=== PATIENT | male | born 1950 | race Caucasian/White ===

== ENCOUNTER 2018-03-12 15:30 | Outpatient (RCR) | payer BC ==
[~2018-03-12 15:30] MED LIST: BENICAR40 MG PO; FLUTICASON0.05 MG/Ac NS; NORVASC 5MG5 MG/TAB PO; SIMVASTATIN40 MG PO; ZETIA 10MG TAB10 MG PO; [UNRECOGNIZED DRUG - OTHER] PO
== END 2018-03-20 15:12 | disposition home or self-care (01) ==
LOC: WSPT 15:30
DX: M17.12 Unilateral primary osteoarthritis, left knee (principal)
CPT/HCPCS: G0283-GP

== ENCOUNTER → 2019-04-10 | Outpatient (CLI) | payer BC | LOC: MC.RAD 04-08 13:00 | DX: Z12.31 Encounter for screening mammogram for malignant neoplasm of breast (principal); N62 Hypertrophy of breast ==

== ENCOUNTER → 2019-07-24 | Outpatient (CLI) | payer BC | LOC: COL.RAD 14:15 | DX: R22.1 Localized swelling, mass and lump, neck (principal) ==

== ENCOUNTER → 2019-08-21 | Outpatient (CLI) | payer BC | LOC: COL.RAD 11:28 | DX: D17.9 Benign lipomatous neoplasm, unspecified (principal); M46.92 Unspecified inflammatory spondylopathy, cervical region; J32.0 Chronic maxillary sinusitis | CPT/HCPCS: Q9967 ==

== ENCOUNTER 2019-10-26 23:15 | Emergency (ER) | payer BC ==
[~2019-10-26] VITALS: Ht 182.9 cm; Wt 93.2 kg
[~2019-10-26 23:15] MED LIST changes: +NORVASC 10MG10 MG PO; -NORVASC 5MG5 MG/TAB PO
[2019-10-26] MEDS ORDERED: HYGROTON 2525 MG/TAB PO (23:52)
[2019-10-26] MEDS ORDERED: FERROUSAL325 MG PO (23:52)
[2019-10-26] MEDS ORDERED: CRESTOR20 MG PO (23:53)
[2019-10-26] MEDS ORDERED: ZYRTEC10MGSGL PO (23:53)
[2019-10-27 00:26] LABS: BASO % 0.2 % (0.0-2.0); EOS # 0.1 (0.0-0.7); EOS % 0.5 % (0-4.0); GRAN % 79.4 % (42.2-75.2); HEMOGLOBIN 11.2 g/dl (13.5-18.0); LYMPH % 9.8 % (20.0-51.0); MEAN CELL VOLUME 87 fl (80.0-100.0); MEAN CORPUSCULAR HEMOGLOBIN 30 pg (27.0-31.0); MEAN CORPUSCULAR HGB CONC 34 g/dl (33.0-37.0); MEAN PLATELET VOLUME 9.5 fl (7.4-10.4); MONO % 9.6 % (1.7-9.3); PLATELET COUNT 247 K/mm3 (130-400); RED BLOOD COUNT 3.78 M/mm3 (4.20-5.60); REDCELL DISTRIBUTION WIDTH-CV 14.1 % (11.5-14.5)
[2019-10-27 00:30] LABS: HEMATOCRIT 32.8 % (42.0-52.0)
[2019-10-27 00:41] LABS: ALBUMIN 4.4 gm/dL (3.5-5.0); BILIRUBIN,TOTAL 0.8 mg/dL (0.0-1.0); CALCIUM 9.1 mg/dL (8.4-10.2); CREATININE, serum 1.17 (0.66-1.25); TOTAL PROTEIN 8.3 gm/dL (6.4-8.2)
[2019-10-27 00:50] LABS: POTASSIUM 2.7 mmol/L (3.4-5.0)
[2019-10-27 01:02] LABS: C-REACTIVE PROTEIN 20.1 mg/dL (0.0-0.9)
[2019-10-27] MEDS ORDERED: CEPHALEXIN500 M1 PO ×7 (01:32→11:17)
[2019-10-27] MEDS ORDERED: ELIQUIS 5MG PO ×2 (01:35)
[2019-10-27 02:24] VITALS: BP 118/52; PULSE 99; TEMP 98.7
[2019-10-27] MEDS ORDERED: DOXYCYCLINE 10100 MG PO (18:28)
== END 2019-10-27 02:25 | disposition home or self-care (01) ==
LOC: COL.ER 23:15
PROVIDERS: Emergency Medicine
DX: L03.116 Cellulitis of left lower limb (principal); I10 Essential (primary) hypertension; E78.5 Hyperlipidemia, unspecified
CPT/HCPCS: J0696; J1650; J7030

== ENCOUNTER 2019-10-27 17:26 | Outpatient (RCR) | payer BC ==
[~2019-10-27] VITALS: Ht 182.9 cm; Wt 98.2 kg
[~2019-10-27 17:26] MED LIST changes: +CEPHALEXIN500 M1 PO; +CRESTOR20 MG PO; +ELIQUIS 5MG PO; +FERROUSAL325 MG PO; +HYGROTON 2525 MG/TAB PO; +ZYRTEC10MGSGL PO
[2019-10-27] MEDS ORDERED: DOXYCYCLINE 10100 MG PO (18:28)
[2019-10-28 19:10] VITALS: BP 143/70; PULSE 87; TEMP 98.8
[2019-10-29] MEDS ORDERED: TURMERIC500 MG PO (17:29)
[2019-10-29] MEDS ORDERED: MEN'S ONE DAIL1 EACH PO (17:30)
[2019-10-29] MEDS ORDERED: FERROUSAL325 MG PO (17:31)
[2019-10-29] MEDS ORDERED: B-12 500 MCG PO (17:31)
[2019-10-29] MEDS ORDERED: COZAAR100 MG PO (17:32)
[2019-10-29] MEDS ORDERED: NATURAL POTASS595 MG PO (17:33)
[2019-10-29] MEDS ORDERED: MAGNESIUM500 MG PO (17:34)
[2019-10-29] MEDS ORDERED: FLONASEALLERGY NS (17:36)
[2019-10-29] MEDS ORDERED: K-TAB20 PO (17:37)
[2019-10-29 17:40] VITALS: BP 114/74; PULSE 76; TEMP 98.1
[2019-10-30 17:36] VITALS: BP 120/71; PULSE 77; TEMP 98.3
[2019-10-31 17:30] VITALS: BP 106/58; PULSE 78; TEMP 98.7
[2019-11-01 17:13] VITALS: BP 116/63; PULSE 73; TEMP 98.4
== END 2019-11-01 17:45 | disposition home or self-care (01) ==
LOC: EUO 10-28 17:58
DX: A46 Erysipelas (principal)
CPT/HCPCS: J0696